=== PATIENT | male | born 1970 | race Caucasian/White ===

== ENCOUNTER 2020-02-07 15:53 | Emergency (ER) | payer OTHER, SELFPAY ==
[2020-02-07 16:04] VITALS: BMI 26.4
[2020-02-07 16:07] VITALS: BP 115/84; PULSE 84; RESP 16; TEMP 36.8; O2SAT 97
--- NOTE | 2020-02-07 22:24 | W.ED.EXTPRO ---
HPI - Extremity Problem General: Chief complaint: Extremity Injury, Lower Stated complaint: LEFT KNEE PAIN Time Seen by Provider: 02/07/20 18:08 History of Present Illness: HPI Narrative: I did not see this patient Course Vital Signs: Vital signs: Vital Signs Temperature 98.2 F 02/07/20 16:07 Pulse Rate 84 02/07/20 16:07 Respiratory Rate 16 02/07/20 16:07 Blood Pressure 115/84 02/07/20 16:07 Pulse Oximetry 97 02/07/20 16:07 Discharge Plan Discharge Patient Disposition: Left Without Being Seen Discharge Date/Time: 02/07/20 18:09 Coding Level of Care Code ED [employer] [facility] for Adrianne Whiting
== END 2020-02-07 18:09 | disposition left against medical advice (07) ==
PROVIDERS: Emergency Provider Nurse Practitioner Family
DX: M25.562 Pain in left knee (principal); Z53.21 Procedure and treatment not carried out due to patient leaving prior to being seen by health care provider
CPT/HCPCS: 12345; 99281